=== PATIENT | male | born 1945 | race Caucasian/White ===

== ENCOUNTER 2017-09-26 08:46 | Day surgery (SDC) | payer MEDICARE, OTHER ==
[~2017-09-26 08:46] MED LIST: Aspirin EC81 MG PO; CHOL10002; CLOP75 PO; ELIQUIS5 MG; ELIQUIS5 MG PO; GLUCOSAMINE &1 EACH PO; NITR.4SL MM; SILD50TA; TRIA80TC TOP; WARF4
[2017-12-16] MEDS ORDERED: PRED10 PO (09:24)
== END 2017-09-26 23:06 | disposition home or self-care (01) ==
LOC: CT 08:46
PROVIDERS: Radiology Diagnostic Radiology
PROC: 0FB23ZX Excision of Left Lobe Liver, Percutaneous Approach, Diagnostic (ICD-10-PCS; principal; 2017-09-26 11:00)
DX: C78.7 Secondary malignant neoplasm of liver and intrahepatic bile duct (principal); C01 Malignant neoplasm of base of tongue; J90 Pleural effusion, not elsewhere classified; R16.0 Hepatomegaly, not elsewhere classified; R91.8 Other nonspecific abnormal finding of lung field; I48.91 Unspecified atrial fibrillation; Z79.01 Long term (current) use of anticoagulants
CPT/HCPCS: 47000; 77012; 88108; 88305; 88307; 88341; 88342

== ENCOUNTER 2017-10-11 08:40 | Day surgery (SDC) | payer MEDICARE, OTHER ==
[~2017-10-11] VITALS: Ht 175.3 cm; Wt 75.3 kg
[2017-12-16] MEDS ORDERED: PRED10 PO (09:24)
== END 2017-10-11 13:30 | disposition home or self-care (01) ==
LOC: ORSCMMR 08:40 → ORD 10:15 → ORSCMMR 10:15
PROVIDERS: Surgery
PROC: B5181ZA Fluoroscopy of Superior Vena Cava using Low Osmolar Contrast, Guidance (ICD-10-PCS; principal; 2017-10-11 10:15)
PROC: 02HV33Z Insertion of Infusion Device into Superior Vena Cava, Percutaneous Approach (ICD-10-PCS; principal; 2017-10-11 10:15)
DX: C76.0 Malignant neoplasm of head, face and neck (principal); C78.7 Secondary malignant neoplasm of liver and intrahepatic bile duct; I25.10 Atherosclerotic heart disease of native coronary artery without angina pectoris; I48.92 Unspecified atrial flutter; Z95.0 Presence of cardiac pacemaker; I25.2 Old myocardial infarction; Z79.899 Other long term (current) drug therapy
CPT/HCPCS: 77001; C1769; C1788; J0690; J1642; J7120

== ENCOUNTER 2017-11-04 01:12 | Day surgery (SDC) | payer MEDICARE, OTHER ==
[2017-11-04] MEDS ORDERED: CHOL10002 PO (09:57)
[2017-11-04] MEDS ORDERED: METO10 PO (09:58)
[2017-11-04] MEDS ORDERED: ONDA8 PO (09:58)
[2017-12-16] MEDS ORDERED: PRED10 PO (09:24)
== END 2017-11-04 10:56 | disposition home or self-care (01) ==
LOC: ATC 01:12
DX: C91.10 Chronic lymphocytic leukemia of B-cell type not having achieved remission (principal); C01 Malignant neoplasm of base of tongue; C79.51 Secondary malignant neoplasm of bone; C78.02 Secondary malignant neoplasm of left lung; C78.01 Secondary malignant neoplasm of right lung; C78.7 Secondary malignant neoplasm of liver and intrahepatic bile duct; C77.2 Secondary and unspecified malignant neoplasm of intra-abdominal lymph nodes
CPT/HCPCS: 96360; J1642; J7030

== ENCOUNTER 2017-11-10 07:36 | Day surgery (SDC) | payer MEDICARE, OTHER ==
[~2017-11-10 07:36] MED LIST changes: +CHOL10002 PO; +METO10 PO; +ONDA8 PO
[2017-12-16] MEDS ORDERED: PRED10 PO (09:24)
== END 2017-11-10 16:20 | disposition home or self-care (01) ==
LOC: ATC 07:36
DX: C91.10 Chronic lymphocytic leukemia of B-cell type not having achieved remission (principal); C01 Malignant neoplasm of base of tongue; E86.0 Dehydration; C91.90 Lymphoid leukemia, unspecified not having achieved remission; C78.7 Secondary malignant neoplasm of liver and intrahepatic bile duct; C78.02 Secondary malignant neoplasm of left lung; C78.01 Secondary malignant neoplasm of right lung; C79.51 Secondary malignant neoplasm of bone
CPT/HCPCS: 96360; J1642; J7030

== ENCOUNTER 2017-11-25 02:44 | Day surgery (SDC) | payer MEDICARE, OTHER | END 2017-11-25 12:42 | disposition home or self-care (01) | LOC: ATC 02:44 | DX: C01 Malignant neoplasm of base of tongue (principal); E86.0 Dehydration; C91.90 Lymphoid leukemia, unspecified not having achieved remission; C78.7 Secondary malignant neoplasm of liver and intrahepatic bile duct; C78.02 Secondary malignant neoplasm of left lung; C78.01 Secondary malignant neoplasm of right lung; C79.51 Secondary malignant neoplasm of bone | CPT/HCPCS: 96360; J1642; J7030 ==

== ENCOUNTER 2017-11-26 02:05 | Day surgery (SDC) | payer MEDICARE, OTHER | END 2017-11-26 16:00 | disposition home or self-care (01) | LOC: ATC 02:05 | DX: C01 Malignant neoplasm of base of tongue (principal); E86.0 Dehydration; C91.90 Lymphoid leukemia, unspecified not having achieved remission; C78.7 Secondary malignant neoplasm of liver and intrahepatic bile duct; C78.02 Secondary malignant neoplasm of left lung; C78.01 Secondary malignant neoplasm of right lung; C79.51 Secondary malignant neoplasm of bone | CPT/HCPCS: 96360; J1642; J7030 ==

== ENCOUNTER 2018-09-03 13:18 | Day surgery (SDC) | payer MEDICARE, OTHER ==
[~2018-09-03 13:18] MED LIST changes: +PRED10 PO
== END 2018-09-03 22:42 | disposition home or self-care (01) ==
LOC: US 13:18
PROC: 0W9B3ZZ Drainage of Left Pleural Cavity, Percutaneous Approach (ICD-10-PCS; principal; 2018-09-03)
DX: J90 Pleural effusion, not elsewhere classified (principal); C76.0 Malignant neoplasm of head, face and neck; C91.90 Lymphoid leukemia, unspecified not having achieved remission; C79.51 Secondary malignant neoplasm of bone; C78.02 Secondary malignant neoplasm of left lung; C78.01 Secondary malignant neoplasm of right lung; C78.7 Secondary malignant neoplasm of liver and intrahepatic bile duct
CPT/HCPCS: 32555; 71045

== ENCOUNTER 2018-09-07 14:35 | Day surgery (SDC) | payer MEDICARE, OTHER | END 2018-09-07 22:45 | disposition home or self-care (01) | LOC: US 14:35 | DX: J90 Pleural effusion, not elsewhere classified (principal); C78.01 Secondary malignant neoplasm of right lung; C78.02 Secondary malignant neoplasm of left lung; C79.51 Secondary malignant neoplasm of bone; C78.7 Secondary malignant neoplasm of liver and intrahepatic bile duct | CPT/HCPCS: 32555; 71045 ==

== ENCOUNTER 2018-09-16 11:19 | Emergency (ER) | payer MEDICARE, OTHER ==
[~2018-09-16] VITALS: Ht 177.8 cm; Wt 70.3 kg
[2018-09-16 12:13] LABS: BASOPHILS ABSOLUTE AUTO 0.06 K/mm3 (0.00-0.23); BASOPHILS PERCENT AUTO 0 % (0-2); EOSINOPHILS ABSOLUTE AUTO 0.06 K/mm3 (0.00-0.68); EOSINOPHILS PERCENT AUTO 0 % (0-6); Hematocrit 39.9 % (37.0-53.0); Hemoglobin 12.7 g/dL (13.5-17.5); IMMATURE GRAN ABSOLUTE AUTO 0.18 K/mm3 (0.00-0.10); IMMATURE GRAN PERCENT AUTO 1 % (0-1); LYMPHOCYTES ABSOLUTE AUTO 10.48 K/mm3 (0.84-5.20); LYMPHOCYTES PERCENT AUTO 53 % (21-46); MONOCYTES ABSOLUTE AUTO 1.25 K/mm3 (0.16-1.47); MONOCYTES PERCENT AUTO 6 % (4-13); Mean Corpuscular HGB 30.7 pg (26.0-34.0); Mean Corpuscular HGB Conc 31.8 g/dL (31.5-36.5); Mean Corpuscular Volume 96 fL (80-100); Mean Platelet Volume 9.2 fL (9.1-12.4); NEUTROPHILS ABSOLUTE AUTO 7.64 K/mm3 (1.96-9.15); NEUTROPHILS PERCENT AUTO 39 % (41-73); NRBC ABSOLUTE 0.02 K/mm3 (0.00-0.02); NRBC Auto 0.1 /100 WBC (0.0-0.2); Platelet Count 385 K/mm3 (150-400); RDW Coefficient Variation 17.5 % (11.7-14.2); RDW Standard Deviation 61.3 fL (35.1-46.3); Red Blood Cell Count 4.14 M/mm3 (4.30-5.90); White Blood Cell Count 19.67 K/mm3 (4.00-11.30)
[2018-09-16 12:35] LABS: International Normalized Ratio 1.21; Prothrombin Time Results 12.6 Sec (9.7-11.5)
[2018-09-16 12:36] LABS: Alanine Aminotransfer (ALT/SGP 45 U/L (12-78); Albumin, Blood 2.1 g/dL (3.4-5.0); Albumin/Globulin Ratio 0.6 (0.8-1.8); Alk Phos 166 U/L (50-136); Anion Gap 9 mmol/L (6-16); Aspartate Aminotrans (AST/SGOT 71 U/L (12-37); Bilirubin, Total 0.7 mg/dL (0.1-1.0); Blood Urea Nitrogen 24 mg/dL (8-24); Bun/Creatinine Ratio 20.9 (12.0-20.0); CO2, Blood 26 mmol/L (21-32); Calcium, Blood 7.7 mg/dL (8.5-10.1); Chloride, Blood 103 mmol/L (98-108); Creatinine, Blood 1.15 mg/dL (0.60-1.20); Globulin, Blood 3.6 g/dL (2.2-4.0); Glomerular Filtration Rate >60 (60-); Glucose, Blood 149 mg/dL (70-99); Potassium, Blood 4.7 mmol/L (3.5-5.5); Sodium, Blood 138 mmol/L (136-145); Total Protein, Blood 5.7 g/dL (6.4-8.2)
== END 2018-09-16 15:05 | disposition home or self-care (01) ==
LOC: ER 11:19
PROVIDERS: Internal Medicine; Physician Assistant
DX: C14.0 Malignant neoplasm of pharynx, unspecified (principal); J90 Pleural effusion, not elsewhere classified; R06.03 Acute respiratory distress; Z79.899 Other long term (current) drug therapy
CPT/HCPCS: 32555; 71045; 71046; 80053; 85025; 85610; 99284-25; J1642

== ENCOUNTER 2018-09-17 10:48 | Day surgery (SDC) | payer MEDICARE, OTHER | END 2018-09-17 22:50 | disposition home or self-care (01) | LOC: US 10:48 | PROC: 0W9B3ZZ Drainage of Left Pleural Cavity, Percutaneous Approach (ICD-10-PCS; principal; 2018-09-17) | DX: J91.0 Malignant pleural effusion (principal); C76.0 Malignant neoplasm of head, face and neck; C91.90 Lymphoid leukemia, unspecified not having achieved remission | CPT/HCPCS: 32555; 71045 ==

== ENCOUNTER 2018-09-21 10:11 | Observation (INO) | payer MEDICARE, OTHER ==
[~2018-09-21] VITALS: Ht 175.3 cm; Wt 67.0 kg
[2018-09-21] MEDS ORDERED: DOXY100T53 (10:34)
[2018-09-21 10:36] LABS: BASOPHILS ABSOLUTE AUTO 0.11 K/mm3 (0.00-0.23); BASOPHILS PERCENT AUTO 0 % (0-2); EOSINOPHILS ABSOLUTE AUTO 0.11 K/mm3 (0.00-0.68); EOSINOPHILS PERCENT AUTO 0 % (0-6); Hematocrit 44.4 % (37.0-53.0); Hemoglobin 13.6 g/dL (13.5-17.5); IMMATURE GRAN ABSOLUTE AUTO 0.23 K/mm3 (0.00-0.10); IMMATURE GRAN PERCENT AUTO 1 % (0-1); LYMPHOCYTES ABSOLUTE AUTO 17.16 K/mm3 (0.84-5.20); LYMPHOCYTES PERCENT AUTO 60 % (21-46); MONOCYTES ABSOLUTE AUTO 1.75 K/mm3 (0.16-1.47); MONOCYTES PERCENT AUTO 6 % (4-13); Mean Corpuscular HGB Conc 30.6 g/dL (31.5-36.5); Mean Corpuscular Volume 98 fL (80-100); Mean Platelet Volume 9.4 fL (9.1-12.4); NEUTROPHILS ABSOLUTE AUTO 9.12 K/mm3 (1.96-9.15); NEUTROPHILS PERCENT AUTO 32 % (41-73); Platelet Count 371 K/mm3 (150-400); RDW Coefficient Variation 17.7 % (11.7-14.2); RDW Standard Deviation 62.6 fL (35.1-46.3); Red Blood Cell Count 4.54 M/mm3 (4.30-5.90); White Blood Cell Count 28.48 K/mm3 (4.00-11.30)
[2018-09-21 10:53] LABS: Alanine Aminotransfer (ALT/SGP 52 U/L (12-78); Albumin/Globulin Ratio 0.5 (0.8-1.8); Alk Phos 192 U/L (50-136); Anion Gap 14 mmol/L (6-16); Aspartate Aminotrans (AST/SGOT 112 U/L (12-37); Bilirubin, Total 0.7 mg/dL (0.1-1.0); Blood Urea Nitrogen 21 mg/dL (8-24); Bun/Creatinine Ratio 18.4 (12.0-20.0); CO2, Blood 22 mmol/L (21-32); Calcium, Blood 7.7 mg/dL (8.5-10.1); Chloride, Blood 104 mmol/L (98-108); Creatinine, Blood 1.14 mg/dL (0.60-1.20); Globulin, Blood 4.1 g/dL (2.2-4.0); Glomerular Filtration Rate >60 (60-); Glucose, Blood 147 mg/dL (70-99); Potassium, Blood 4.7 mmol/L (3.5-5.5); Sodium, Blood 140 mmol/L (136-145); Total Protein, Blood 6.1 g/dL (6.4-8.2)
[2018-09-21] MEDS ORDERED: NEOPOLDEXS BOTHEYES (17:44)
[2018-09-21] MEDS ORDERED: ARTIFICIAL TEA3.5 GM (17:45)
--- NOTE | 2018-09-21 17:52 | NUR ---
SHIFT SUMMARY PT ARRIVED TO ROOM AT 1447 VIA GURNEY. PT TRANSFERRED INDEPENDENTLY TO BED. PT DENIES PAIN, SOB AND N/V. REPORT RECIEVED AT 1423 FROM ALMITA CHIN RN. ADMISSION COMPLETE. VSS. PT EATING DINNER AT THIS TIME. BED IN LOW POSITION, CALL LIGHT WITHIN REACH. SPOUSE PRESENT AT BEDSIDE.
--- NOTE | 2018-09-22 06:24 | NUR ---
SHIFT SUMMARY A/O X4, ABLE TO MAKE NEEDS KNOWN. COOPERATIVE WITH CARE. ANSWERS QUESTIONS APPORPIRATLEY. UP INDEPENDENTLY. NO C/O PAIN/DISCOMFORT. OCCASIONAL NON-PRODUCTIVE COUGH. STATED DID NOT REST AT ALL THIS SHIFT. HOPEFUL TO GO HOME TODAY. NO ACUTE CHANGES OVERNIGHT. BED IN LOWEST POSITION. CALL LIGHT AND BELONGINGS WITHIN REACH. WCTM. REPORT TO ONCOMING RN.
--- NOTE | 2018-09-22 10:53 | NUR ---
PT DISCHARGED PT DISCHARGED AT 1040. PT IN STABLE CONDITION WITH VSS. IV REMOVED & INTACT. PT & SPOUSE EDUCATED ON DC INSTRUCTIONS & STATED THEY HAD NO FURTHER QUESTIONS. PT WHEELED OUT OF HOSPITAL BY RN AND DRIVEN HOME BY SPOUSE.
== END 2018-09-22 10:41 | disposition home or self-care (01) ==
LOC: ER 10:11 → MEDS 10:12
PROVIDERS: Emergency Medicine; ADMIT Hospitalist
DX: J96.01 Acute respiratory failure with hypoxia (principal); J90 Pleural effusion, not elsewhere classified; R79.89 Other specified abnormal findings of blood chemistry; C91.10 Chronic lymphocytic leukemia of B-cell type not having achieved remission; E83.51 Hypocalcemia; C02.9 Malignant neoplasm of tongue, unspecified
CPT/HCPCS: 32555; 71045; 71046; 80053; 85025; 94644; 99285-25; G0378

== ENCOUNTER 2018-09-24 14:58 | Day surgery (SDC) | payer MEDICARE, OTHER ==
[~2018-09-24 14:58] MED LIST changes: +ARTIFICIAL TEA3.5 GM; +DOXY100T53; +NEOPOLDEXS BOTHEYES
== END 2018-09-24 23:03 | disposition home or self-care (01) ==
LOC: US 14:58
DX: J90 Pleural effusion, not elsewhere classified (principal); C91.90 Lymphoid leukemia, unspecified not having achieved remission; C79.51 Secondary malignant neoplasm of bone; C78.02 Secondary malignant neoplasm of left lung; C78.01 Secondary malignant neoplasm of right lung; C78.7 Secondary malignant neoplasm of liver and intrahepatic bile duct
CPT/HCPCS: 32555; 71045

== ENCOUNTER 2018-09-28 14:52 | Day surgery (SDC) | payer MEDICARE, OTHER | END 2018-09-28 22:53 | disposition home or self-care (01) | LOC: US 14:52 | DX: J90 Pleural effusion, not elsewhere classified (principal); C76.0 Malignant neoplasm of head, face and neck; C91.90 Lymphoid leukemia, unspecified not having achieved remission; C79.51 Secondary malignant neoplasm of bone; C78.02 Secondary malignant neoplasm of left lung; C78.01 Secondary malignant neoplasm of right lung; C78.7 Secondary malignant neoplasm of liver and intrahepatic bile duct | CPT/HCPCS: 32555; 71045 ==

== ENCOUNTER 2018-10-16 13:55 | Day surgery (SDC) | payer MEDICARE, OTHER | END 2018-10-16 22:48 | disposition home or self-care (01) | LOC: US 13:55 | DX: J90 Pleural effusion, not elsewhere classified (principal); C91.90 Lymphoid leukemia, unspecified not having achieved remission; C79.51 Secondary malignant neoplasm of bone; C78.02 Secondary malignant neoplasm of left lung; C78.01 Secondary malignant neoplasm of right lung; C78.7 Secondary malignant neoplasm of liver and intrahepatic bile duct | CPT/HCPCS: 32555; 71045 ==